=== PATIENT | female | born 1995 | race Caucasian/White ===

== ENCOUNTER → 2021-06-21 14:44 | Outpatient (CLI) | payer OTHER, MEDICAID, SELFPAY ==
--- NOTE | 2021-06-21 | DI.US.S_ITS ---
PROCEDURE: US OB <= 14 WEEKS FETUS INDICATIONS: SIZE AND DATES OUTSIDE/PRIOR DATING DATA: First dating scan (date and location): 06/21/2021. Estimated date of delivery (ARVIND) from first dating scan: 02/01/2022. The calculations are made using the ultrasound ARVIND of 02/01/2022. TECHNIQUE: Real-time scanning was performed of the fetus and maternal pelvic organs, with image documentation. Endovaginal scanning was also performed to better visualize the fetus and maternal ovaries. COMPARISON: None. FINDINGS: Embryo: [place]-rump length measures 1.5 cm corresponding to 7 weeks 6 days. Heart rate: 165 Small perigestational sac bleed site measuring 0.6 x 0.7 x 0.3 cm. Maternal organs: Left ovary not visualized. Right corpus luteal cyst IMPRESSION: 1. A 7-week 6-day single living IUP corresponding to ultrasound ARVIND 02/01/2022. 2. Small perigestational sac bleed site. We strive to produce accurate, complete, and clear reports of imaging services. To assist us in improving patient care, this report was composed using standard report templates and voice recognition software. Therefore, it may contain abnormal punctuation, insertions and/or omissions. Occasional wrong-word or sound-alike substitutions may occur. Though we review the report and make efforts to correct it, we do recommend that the report be read carefully in proper context to recognize any text inaccuracies. Dictated by: Robert ADAMS Interpreted: Boom Fernandez MD on 06/21/2021 at 16:27 Transcribed by: PHILIP on 06/21/2021 at 16:29 Approved by: Boom Fernandez M.D. on 06/22/2021 at 1:46
== END ==
PROVIDERS: Family Provider Physician Assistant; Referring Provider Midwife; Visit Provider Midwife
DX: Z36.87 Encounter for antenatal screening for uncertain dates (principal); Z3A.01 Less than 8 weeks gestation of pregnancy
CPT/HCPCS: 76801; 76817

== ENCOUNTER → 2021-08-08 12:01 | Outpatient (CLI) | payer OTHER, MEDICAID, SELFPAY ==
--- NOTE | 2021-08-08 | DI.US.S_ITS ---
PROCEDURE: US OB <= 14 WEEKS FETUS INDICATIONS: cervical length/ previous scan 06/21/21 OUTSIDE/PRIOR DATING DATA: First dating scan (date and location): 06/21/2021. Estimated date of delivery (ARVIND) from first dating scan: 02/01/2022. The calculations are made using the ultrasound ARVIND of 02/01/2022. TECHNIQUE: Real-time scanning was performed of the fetus and maternal pelvic organs, with image documentation. Endovaginal scanning was also performed to better visualize the fetus and maternal ovaries. COMPARISON: [facility], US, OB <= 14 WEEKS FETUS, 06/21/2021, 14:53. FINDINGS: presentation: Transverse, head right. Placenta: Posterior. Cervix: 5.5 cm in length. No funneling. Heart rate: 155 bpm Gestational age based on initial ultrasound: 14 weeks 5 days. IMPRESSION: 1. [place] living intrauterine at 14 weeks 5 days based on prior ultrasound. Heart rate 155 bpm. 2. Cervix measures 5.5 cm. No funneling. We strive to produce accurate, complete, and clear reports of imaging services. To assist us in improving patient care, this report was composed using standard report templates and voice recognition software. Therefore, it may contain abnormal punctuation, insertions and/or omissions. Occasional wrong-word or sound-alike substitutions may occur. Though we review the report and make efforts to correct it, we do recommend that the report be read carefully in proper context to recognize any text inaccuracies. Dictated by: John Ervin M.D. on 08/08/2021 at 13:09 Approved by: John Ervin M.D. on 08/08/2021 at 13:13
== END ==
PROVIDERS: Family Provider Physician Assistant; Referring Provider Midwife; Visit Provider Midwife
DX: Z36.86 Encounter for antenatal screening for cervical length (principal)
CPT/HCPCS: 76815; 76817